=== PATIENT | female | born 1975 | race Asian ===

== ENCOUNTER 2021-10-18 12:56 | Emergency (ER) | payer OTHER ==
[~2021-10-18] VITALS: Ht 152.4 cm; Wt 61.4 kg
[2021-10-18 13:46] LABS: MEAN CORPUSCULAR HEMOGLOBIN 18.9 PG (27.0-31.0)
[2021-10-18 13:48] LABS: HEMATOCRIT 23.2 % (35.0-45.0); MEAN CORPUSCULAR HGB CONC 29.9 g/dL (33.0-36.5); MEAN CORPUSCULAR VOLUME 63.1 FL (78-98); MEAN PLATELET VOLUME 8.6 FL (7.4-10.4); PLATELET COUNT 274 X10'3 (140-440); RED BLOOD COUNT 3.68 X10'6 (4.20-5.60); RED CELL DISTRIBUTION WIDTH 20.4 % (11.5-14.5); WHITE BLOOD COUNT 6.3 X10'3 (4.5-11.0)
[2021-10-18 13:51] LABS: HEMOGLOBIN 6.9 g/dl (12.0-16.0)
[2021-10-18 13:58] LABS: ALANINE AMINOTRANSFERASE 18 U/L (12-78); ALBUMIN 3.7 G/DL (3.4-5.0); ALBUMIN/GLOBULIN RATIO 1.2 (1.1-1.5); ALKALINE PHOSPHATASE 59 IU/L (46-116); ANION GAP 9 (8-16); ASPARTATE AMINO TRANSFERASE 17 U/L (10-37); BILIRUBIN,TOTAL 0.7 MG/DL (0.1-1.0); BLOOD UREA NITROGEN 14 MG/DL (7-18); BUN/CREATININE RATIO 17.5 (6.6-38.0); CALCIUM 7.9 MG/DL (8.5-10.1); CHLORIDE 107 MMOL/L (99-107); GLUCOSE 145 MG/DL (70-104); LIPASE 112 U/L (73-393); POTASSIUM 3.6 MMOL/L (3.5-5.1); SODIUM 141 MMOL/L (135-145); TOTAL CARBON DIOXIDE 25.1 MMOL/L (24-32); TOTAL PROTEIN 6.9 G/DL (6.4-8.2); eGFR 78 ML/MIN
[2021-10-18 14:03] LABS: ANISOCYTOSIS 3+; HYPOCHROMASIA 2+; MICROCYTOSIS 2+; PLATELET ESTIMATE NORMAL; TOTAL CELLS COUNTED 100
[2021-10-18 14:04] LABS: ELLIPTOCYTES FEW; LARGE PLATELETS MODERATE; SCHISTOCYTES FEW; TEAR DROP CELLS FEW
[2021-10-18 14:39] LABS: URINE HCG NEGATIVE (NEG)
[2021-10-18 14:40] LABS: CLARITY,URINE SLIGHTLY CLOUDY (Clear); COLOR,URINE YELLOW (Yellow); GLUCOSE, URINE NEGATIVE (Neg); KETONES,URINE NEGATIVE (Neg); LEUKOCYTE ESTERASE ,URINE NEGATIVE (Neg); NITRITES, URINE NEGATIVE (Neg); OCCULT BLOOD,URINE LARGE (Neg); PH,URINE 7.5 (4.8-8.0); PROTEIN,URINE 30 mg/dl (Neg); UROBILINOGEN,URINE 0.2 E.U/dL (0.2-1.0)
--- NOTE | 2021-10-18 14:47 | NUR ---
Pt only speaks Mandarin. Attempting to locate translation services for assessment. director reactor projects informed.
[2021-10-18 14:50] LABS: UA COLLECTION TYPE CLN CATCH MIDSTREAM
[2021-10-18] MEDS ORDERED: normal saline 1000ML IV soln IV ONE (14:50)
[2021-10-18 14:51] LABS: RBC,URINE TNTC /HPF (0-2)
[2021-10-18 14:52] LABS: BACTERIA,URINE 2+ /HPF (Neg); MUCUS STRANDS FEW /LPF (Neg); SQUAMOUS EPITHELIAL CELL,UR MODERATE /LPF (FEW)
[2021-10-18 14:53] LABS: FINE GRANULAR CAST 0-3 /LPF (NEGATIVE)
--- NOTE | 2021-10-18 15:33 | NUR ---
Assessment complete. used translation norberto to translate with pt as blue phone didn't work. pt understood and signed for blood consent.
--- NOTE | 2021-10-18 15:40 | NUR ---
Pt to CT
--- NOTE | 2021-10-18 16:00 | NUR ---
Pt back from XR/CT.
--- NOTE | 2021-10-18 16:45 | NUR ---
Orthostatics done and given to PA. No significant changes seen. Pt denies dizziness through testing process. 2nd liter fluid started. Pt updated on wait for US. No needs at this time.
[2021-10-18 16:58] LABS: HEMATOCRIT 23.3 % (35.0-45.0); HEMOGLOBIN 7.1 g/dl (12.0-16.0); MEAN CORPUSCULAR HEMOGLOBIN 19.3 PG (27.0-31.0); MEAN CORPUSCULAR HGB CONC 30.4 g/dL (33.0-36.5); MEAN CORPUSCULAR VOLUME 63.5 FL (78-98); MEAN PLATELET VOLUME 8.3 FL (7.4-10.4); PLATELET COUNT 266 X10'3 (140-440); RED BLOOD COUNT 3.66 X10'6 (4.20-5.60); RED CELL DISTRIBUTION WIDTH 20.4 % (11.5-14.5); WHITE BLOOD COUNT 6.4 X10'3 (4.5-11.0)
[2021-10-18] MEDS ORDERED: HYDR-3965 PO (17:40)
[2021-10-18] MEDS ORDERED: FERR325T28 PO (17:40)
[2021-10-18] MEDS ORDERED: NAPR-56 PO (17:40)
[2021-10-18 18:07] VITALS: BP 13/62
[2021-10-19] MEDS ORDERED: FLO0.4C PO ×2 (15:08→15:54)
== END 2021-10-18 18:09 | disposition home or self-care (01) ==
LOC: ER 12:56
DX: D53.9 Nutritional anemia, unspecified (principal); R07.89 Other chest pain; R42 Dizziness and giddiness; R11.0 Nausea; K59.00 Constipation, unspecified; K92.1 Melena; Z87.19 Personal history of other diseases of the digestive system; Z79.899 Other long term (current) drug therapy
CPT/HCPCS: 36415; 71045; 74176; 76856; 80053; 81001; 81025; 83690; 85007; 85025; 85027; 85610; 86885; 86900; 86901; 87088; 96360; 96361; 99285; J7030; 93005

== ENCOUNTER 2021-10-19 11:58 | Emergency (ER) | payer OTHER ==
[~2021-10-19] VITALS: Ht 152.4 cm; Wt 61.0 kg
[~2021-10-19 11:58] MED LIST: FERR325T28 PO; HYDR-3965 PO; NAPR-56 PO
[2021-10-19] MEDS ORDERED: morphine 4 MG/ML inj SYRINge IV PRN (12:05)
[2021-10-19] MEDS ORDERED: normal saline 1000ML IV soln IVB ONE (12:05)
[2021-10-19] MEDS ORDERED: ondansetron/PF 4mg/2ml inj IV ONE (12:05)
[2021-10-19 12:49] LABS: MEAN PLATELET VOLUME 8.8 FL (7.4-10.4)
[2021-10-19 12:51] LABS: HEMATOCRIT 22.6 % (35.0-45.0); MEAN CORPUSCULAR HEMOGLOBIN 18.9 PG (27.0-31.0); MEAN CORPUSCULAR VOLUME 63.2 FL (78-98); PLATELET COUNT 256 X10'3 (140-440); RED BLOOD COUNT 3.58 X10'6 (4.20-5.60); RED CELL DISTRIBUTION WIDTH 20.3 % (11.5-14.5)
[2021-10-19 12:59] LABS: HEMOGLOBIN 6.8 g/dl (12.0-16.0)
[2021-10-19 13:03] LABS: ALANINE AMINOTRANSFERASE 24 U/L (12-78); ALBUMIN 3.5 G/DL (3.4-5.0); ALBUMIN/GLOBULIN RATIO 1.1 (1.1-1.5); ALKALINE PHOSPHATASE 57 IU/L (46-116); ANION GAP 10 (8-16); ASPARTATE AMINO TRANSFERASE 21 U/L (10-37); BILIRUBIN,TOTAL 0.7 MG/DL (0.1-1.0); BLOOD UREA NITROGEN 16 MG/DL (7-18); BUN/CREATININE RATIO 22.9 (6.6-38.0); CALCIUM 8.1 MG/DL (8.5-10.1); CHLORIDE 109 MMOL/L (99-107); GLUCOSE 140 MG/DL (70-104); POTASSIUM 3.3 MMOL/L (3.5-5.1); SODIUM 142 MMOL/L (135-145); TOTAL PROTEIN 6.7 G/DL (6.4-8.2); eGFR 90 ML/MIN
[2021-10-19 13:14] LABS: ANISOCYTOSIS 3+; MICROCYTOSIS 2+; PLATELET ESTIMATE NORMAL; TOTAL CELLS COUNTED 100
[2021-10-19 13:15] LABS: HYPOCHROMASIA 1+; TARGET CELLS FEW
[2021-10-19] MEDS ORDERED: ketorolac trometh. 30mg/ml inj. IV ONE (14:00)
[2021-10-19] MEDS ORDERED: tamsulosin 0.4mg capsule PO STA (14:21)
[2021-10-19 14:52] LABS: CLARITY,URINE CLEAR (Clear); COLOR,URINE YELLOW (Yellow); GLUCOSE, URINE NEGATIVE (Neg); KETONES,URINE NEGATIVE (Neg); LEUKOCYTE ESTERASE ,URINE NEGATIVE (Neg); NITRITES, URINE NEGATIVE (Neg); OCCULT BLOOD,URINE SMALL (Neg); PH,URINE 6.5 (4.8-8.0); PROTEIN,URINE NEGATIVE (Neg); UROBILINOGEN,URINE 0.2 E.U/dL (0.2-1.0)
[2021-10-19] MEDS ORDERED: potassium Cl 20 mEq SR tablet PO STA (14:56)
[2021-10-19 14:59] LABS: UA COLLECTION TYPE NON-SPECIFIED; WBC,URINE 0-4 /HPF (0-4)
[2021-10-19 15:00] LABS: BACTERIA,URINE FEW /HPF (Neg); MUCUS STRANDS FEW /LPF (Neg); RBC,URINE 0-2 /HPF (0-2); SQUAMOUS EPITHELIAL CELL,UR FEW /LPF (FEW)
[2021-10-19 15:03] LABS: URINE HCG NEGATIVE (NEG)
[2021-10-19] MEDS ORDERED: HYDROcodone/acetaminophen 5mg/325mg tablet PO ONE (15:05)
[2021-10-19] MEDS ORDERED: FLO0.4C PO ×2 (15:08→15:54)
[2021-10-19 15:25] VITALS: BP 108/62
== END 2021-10-19 16:28 | disposition home or self-care (01) ==
LOC: ER 11:59
DX: N20.0 Calculus of kidney (principal); R42 Dizziness and giddiness; R07.89 Other chest pain; Z86.2 Personal history of diseases of the blood and blood-forming organs and certain disorders involving the immune mechanism; Z79.899 Other long term (current) drug therapy
CPT/HCPCS: 36415; 76856; 80053; 81001; 81025; 85007; 85025; 85610; 86885; 86900; 86901; 93976; 96361; 96374; 96375; 99284; J1885; J2270; J2405; J7030